=== PATIENT | female | born 1980 | race Two or more races ===

== ENCOUNTER 2018-12-26 13:43 | Inpatient (IN) | payer MEDICAID ==
[2018-12-26] MEDS ORDERED: METHYLERGONOVINE 0.2 MG INJ IM ×2 (14:30→23:30)
[2018-12-26] MEDS ORDERED: OXYTOCIN 30 UNITS/LR 500 ML IV ×2 (14:30→23:30)
[2018-12-26] MEDS ORDERED: MISOPROSTOL 200 MCG TAB PR ×2 (14:30→23:30)
[2018-12-26] MEDS ORDERED: CARBOPROST 250 MCG INJ IM ×2 (14:30→23:30)
[2018-12-26] MEDS: LACTATED RINGER'S 1,000 ML IV ×3 (15:25→21:20)
[2018-12-26 16:08] LABS: ADD MAN DIFF? NO
[2018-12-26 16:11] LABS: BASOPHILS % 0.2 % (0.0-2.0); EOSINOPHILS # 0.1 10^3/ul (0.0-0.5); EOSINOPHILS % 0.7 % (0.0-7.0); HEMOGLOBIN 11.2 g/dl (12.0-16.0); LYMPHOCYTES # 1.7 10^3/ul (0.8-2.9); MEAN CORPUSCULAR HEMOGLOBIN 32.5 pg (29.0-33.0); MEAN CORPUSCULAR HGB CONC 33.9 g/dl (32.0-37.0); MEAN CORPUSCULAR VOLUME 95.7 fl (82.0-101.0); MONOCYTE # 0.8 10^3/ul (0.3-0.9); MONOCYTES % 7.5 % (0.0-11.0); NEUTROPHIL # 7.4 10^3/ul (1.6-7.5); NEUTROPHILS % 73.9 % (39.0-77.0); PLATELET COUNT 129 10^3/UL (140-415); RED BLOOD COUNT 3.45 10^6/ul (4.20-5.40); RED CELL DISTRIBUTION WIDTH 13.8 % (11.5-14.5)
[2018-12-26 16:31] LABS: INR 0.86; PROTIME 11.8 Sec (11.9-14.9); PT RATIO 0.9
[2018-12-26] MEDS ORDERED: ONDANSETRON 4 MG INJ (19:28)
[2018-12-26] MEDS ORDERED: PHENYLephrine (100 MCG/ML) 10ML SYG (19:28)
[2018-12-26] MEDS ORDERED: morphine SULFATE/PF (10 MG/10 ML) INJ (19:29)
[2018-12-26] MEDS: CEFAZOLIN 2 GM/50 ML (PMX) 50 ML IVPB (21:23)
[2018-12-26] MEDS: OXYTOCIN 30 UNITS/LR 500 ML IV ×2 (21:46)
[2018-12-26] MEDS ORDERED: LACTATED RINGER'S 1,000 ML IV (22:08)
[2018-12-26] MEDS: DEXTROSE 5%-LR 1,000 ML IV (23:17)
[2018-12-26] MEDS ORDERED: MEPERIDINE 25 MG INJ IV (23:30)
[2018-12-26] MEDS ORDERED: OXYCODONE/ACETAMINOPHEN (5/325) TAB PO ×2 (23:30)
[2018-12-26] MEDS ORDERED: NALOXONE (0.4 MG/ML) INJ IV (23:30)
[2018-12-26] MEDS ORDERED: ALBUTEROL 0.083% (NEB) 2.5 MG/3 ML AMP HHN (23:30)
[2018-12-26] MEDS ORDERED: TRIMETHOBENZAMIDE 100 MG/ML VIAL IM ×2 (23:30)
[2018-12-26] MEDS ORDERED: EPHEDrine 25 MG/5 ML SYG IV (23:30)
[2018-12-26] MEDS ORDERED: IPRATROPIUM (NEB) 0.5 MG/2.5 ML AMP HHN (23:30)
[2018-12-26] MEDS ORDERED: LABETALOL HCL 20MG INJ IV (23:30)
[2018-12-26] MEDS ORDERED: DIPHENHYDRAMINE 50 MG INJ IV ×2 (23:30)
[2018-12-26] MEDS ORDERED: FENTAnyl 50 MCG/ML VIAL IV ×3 (23:30)
[2018-12-26] MEDS ORDERED: morphine 2 MG INJ IV ×2 (23:30)
[2018-12-26] MEDS ORDERED: ONDANSETRON 4 MG INJ IV ×2 (23:30)
[2018-12-26] MEDS ORDERED: HYDROmorphONE 1 MG/5 ML IV SYRINGE IV ×3 (23:30)
[2018-12-26] MEDS ORDERED: NALBUPHINE HCL (10 MG/1 ML) INJ IV (23:30)
[2018-12-26] MEDS ORDERED: MIDAZOLAM 1 MG/ML 2 ML INJ IV (23:30)
[2018-12-26] MEDS ORDERED: hydrALAzine 20 MG INJ IV (23:30)
[2018-12-26] MEDS ORDERED: LANOLIN HPA 1 PKT TOP (23:30)
[2018-12-26] MEDS ORDERED: METHYLERGONOVINE 0.2 MG TAB PO (23:30)
[2018-12-27] MEDS: OXYTOCIN 30 UNITS/LR 500 ML IV (01:42)
[2018-12-27] MEDS: LACTATED RINGER'S 1,000 ML IV ×3 (05:15→21:20)
[2018-12-27 06:22] LABS: ADD MAN DIFF? NO
[2018-12-27 06:27] LABS: BASOPHILS % 0.3 % (0.0-2.0); EOSINOPHILS # 0.1 10^3/ul (0.0-0.5); EOSINOPHILS % 0.6 % (0.0-7.0); LYMPHOCYTES # 1.4 10^3/ul (0.8-2.9); LYMPHOCYTES % 13.1 % (15.0-51.0); MEAN CORPUSCULAR HEMOGLOBIN 32.5 pg (29.0-33.0); MEAN CORPUSCULAR HGB CONC 33.3 g/dl (32.0-37.0); MEAN CORPUSCULAR VOLUME 97.6 fl (82.0-101.0); MEAN PLATELET VOLUME 11.6 fl (7.4-10.4); MONOCYTE # 0.8 10^3/ul (0.3-0.9); MONOCYTES % 8.1 % (0.0-11.0); NEUTROPHILS % 77.3 % (39.0-77.0); PLATELET COUNT 111 10^3/UL (140-415); RED BLOOD COUNT 3.38 10^6/ul (4.20-5.40); RED CELL DISTRIBUTION WIDTH 13.7 % (11.5-14.5)
[2018-12-27 06:27] LABS: WHITE BLOOD COUNT 10.3 10^3/ul (4.8-10.8)
[2018-12-27] MEDS: SENNA/DOCUSATE NA (8.6MG/50MG) TAB PO ×2 (09:09→21:44)
[2018-12-27] MEDS: KETOROLAC 30 MG INJ IV (09:09)
[2018-12-27] MEDS ORDERED: HYDROCODONE/APAP (5/325) TAB NGT (11:00)
[2018-12-27] MEDS ORDERED: DIPHTH/TET/ACEL PERTUSS (ADULT) 0.5 ML VIAL IM* (11:00)
[2018-12-27] MEDS: HYDROCODONE/APAP (5/325) TAB GTB ×2 (14:00→22:00)
[2018-12-27] MEDS: IBUPROFEN 800 MG TAB PO ×2 (14:00→21:44)
[2018-12-27 22:43] LABS: RAPID PLASMA REAGIN NONREACTIVE (NR)
[2018-12-28] MEDS: LACTATED RINGER'S 1,000 ML IV ×3 (05:20→21:22)
[2018-12-28] MEDS: IBUPROFEN 800 MG TAB PO ×3 (06:00→20:25)
[2018-12-28] MEDS: HYDROCODONE/APAP (5/325) TAB GTB ×3 (06:00→22:00)
[2018-12-28] MEDS: SENNA/DOCUSATE NA (8.6MG/50MG) TAB PO ×2 (08:53→20:25)
[2018-12-28] MEDS: MAGNESIUM HYDROXIDE 30ML CUP PO (12:22)
[2018-12-29] MEDS: LACTATED RINGER'S 1,000 ML IV ×2 (05:20→07:42)
[2018-12-29] MEDS: IBUPROFEN 800 MG TAB PO ×2 (06:00→06:46)
[2018-12-29] MEDS: HYDROCODONE/APAP (5/325) TAB GTB (06:00)
[2018-12-29] MEDS: DIPHTH/TET/ACEL PERTUSS (ADULT) 0.5 ML VIAL IM* (07:41)
[2018-12-29] MEDS: MEASLES,MUMPS,RUBELLA VACCINE INJ SC* (07:42)
[2018-12-29] MEDS: SENNA/DOCUSATE NA (8.6MG/50MG) TAB PO (09:02)
== END 2018-12-29 12:56 | disposition home or self-care (01) | DRG 788 ==
LOC: L-D 13:43 → MS1 12-27 12:42
PROVIDERS: Obstetrics & Gynecology
PROC: 10D00Z1 Extraction of Products of Conception, Low, Open Approach (ICD-10-PCS; principal; 2018-12-26 17:00)
DX: O65.5 Obstructed labor due to abnormality of maternal pelvic organs (principal); O34.211 Maternal care for low transverse scar from previous cesarean delivery; O48.0 Post-term pregnancy; Z3A.40 40 weeks gestation of pregnancy; Z37.0 Single live birth
CPT/HCPCS: 85025; 85610; 85730; 86592; 86850; 86900; 86901; 90715; 99464